=== PATIENT | male | born 2000 | race Caucasian/White ===

== ENCOUNTER 2019-08-02 13:51 | Emergency (ER) | payer SELFPAY ==
[2019-08-02] MEDS ORDERED: Lidocaine 1% 10 ML MDV INJECT ONE (14:37)
--- NOTE | 2019-08-02 14:37 | EDM.PDOC ---
ED HPI GENERAL MEDICAL PROBLEM - General Chief Complaint: Skin Complaint Stated Complaint: SKIN COMPLAINT L EAR Time Seen by Provider: 08/02/19 14:07 Source of Information: Reports: Patient History Limitations: Reports: No Limitations - History of Present Illness INITIAL COMMENTS - FREE TEXT/NARRATIVE: Patient is a 19-year-old male who presents with complaints of a painful swollen area anterior to his left ear. He states it initially began as a pimple back in June. He states a couple days ago that he tried to pop it and since that it has been getting progressively larger. He denies any fever, chills, nausea or vomiting. He states that he has been taking some of his aunts antibiotics, however he is unsure what antibiotic this is. He denies any history of MRSA. 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: Reports: Other Medication(s) Left Ear Pain Score (Numeric/FACES): 8 - Related Data Allergies Allergy/AdvReac Type Severity Reaction Status Date / Time No Known Allergies Allergy Verified 08/02/19 14:09 Home Meds: Home Meds Doxycycline [Vibramycin] 100 mg PO BID 10 Days #19 cap 08/02/19 [Rx] Past Medical History - Past Health History Medical/Surgical History: Denies Medical/Surgical History Social & Family History - Family History Family Medical History: Noncontributory - Tobacco Use Smoking Status *Q: Current Every Day Smoker Years of Tobacco use: 2 Packs/Tins Daily: 0.5 ED ROS GENERAL - Review of Systems Review Of Systems: Comprehensive ROS is negative, except as noted in HPI. ED EXAM, SKIN/RASH Exam: See Below Exam Limited By: No Limitations General Appearance: Alert, WD/WN, No Apparent Distress Respiratory/Chest: No Respiratory Distress, Lungs Clear, Normal Breath Sounds, No Accessory Muscle Use, Chest Non-Tender Cardiovascular: Normal Peripheral Pulses, Regular Rate, Rhythm, No Edema, No Gallop, No JVD, No Murmur, No Rub Neurological: Alert, Oriented, CN II-XII Intact, Normal Cognition, Normal Gait, Normal Reflexes, No Motor/Sensory Deficits Psychiatric: Normal Affect, Normal Mood Skin: Warm, Dry, Intact, Normal Color, Other (2 cm fluctuant cyst anterior to the left ear directly below the level of the tragus.) ED SKIN PROCEDURES - I&D Site: left anterior ear Skin Prep: Providone-Iodine (Betadine) Local Anesthesia: Lidocaine: 1% Plain Local Anesthetic Volume: 2cc Area Incised With: 11 Blade, Other (1 cm incision) Drainage: Purulent, Bloody, Moderate Amount Probed to Break Up Loculations: Yes Packed With: 1/2 in. Iodoform Sterile Dressing: Other (nonstick telfa gauze) Complications: No Course - Vital Signs Last Recorded V/S: Last Vital Signs Temp 97.4 F 08/02/19 14:09 Pulse 84 08/02/19 14:09 Resp 16 08/02/19 14:09 BP 111/74 08/02/19 14:09 Pulse Ox 98 08/02/19 14:09 - Orders/Labs/Meds Meds: Medications Discontinued Medications Generic Name Dose Route Start Last Admin Trade Name Kirk PRN Reason Stop Dose Admin Doxycycline Hyclate 100 mg 08/02/19 15:02 08/02/19 15:09 Vibramycin PO 08/02/19 15:03 100 mg ONETIME ONE Administration Lidocaine HCl 10 ml 08/02/19 14:37 08/02/19 14:45 Xylocaine 1% INJECT 08/02/19 14:38 10 ml ONETIME ONE Administration Departure - Departure Time of Disposition: 15:03 Disposition: Home, Self-Care 01 Condition: Good Clinical Impression: Infected sebaceous cyst of skin - Discharge Information *PRESCRIPTION DRUG MONITORING PROGRAM REVIEWED*: No *COPY OF PRESCRIPTION DRUG MONITORING REPORT IN PATIENT EUNICE: No Prescriptions: Doxycycline [Vibramycin] 100 mg PO BID 10 Days #19 cap Instructions: Epidermal Cyst Removal, Care After Referrals: PCP,None [Primary Care Provider] - Forms: ED Department Discharge Additional Instructions: You were seen in the emergency department today for an infected sebaceous cyst your left ear. Incision and drainage was performed and the cyst was packed with gauze. This gauze should stay in place for 48 hours. After that time you may remove the gauze by pulling on the tail that is hanging from the opening. After that time, you may continue to keep gauze over the area as the wound will heal from the inside out. Wash the area with normal soap and water twice daily to keep it clean. You may shower as normal, however you should not submerge your head in water until the wound has completely healed. You have been started on the antibiotic doxycycline. Take this medication twice daily for 10 days. Your first dose was given in the emergency department. You may use Tylenol or ibuprofen as needed for pain. If you experience worsening signs of infection such as increased redness, worsening swelling, or any other symptoms such as fever, chills, nausea, or vomiting, would recommend that you return to the emergency department. Sepsis Event Note - Evaluation Sepsis Screening Result: No Definite Risk - Focused Exam Vital Signs: Vital Signs Temp Pulse Resp BP Pulse Ox 08/02/19 14:09 97.4 F 84 16 111/74 98 Date Exam was Performed: 08/02/19 Time Exam was Performed: 21:07
[2019-08-02] MEDS ORDERED: Doxycycline 100 MG Cap PO ONE (15:02)
== END 2019-08-02 15:18 | disposition home or self-care (01) ==
LOC: JD.ED 13:51
DX: L72.3 Sebaceous cyst (principal); F17.210 Nicotine dependence, cigarettes, uncomplicated; Z79.899 Other long term (current) drug therapy
CPT/HCPCS: 10061; 99282; A9270; J2001; 99283